=== PATIENT | female | born 1935 | race Native Hawaiian/Other Pacific Islander ===

== ENCOUNTER 2017-07-12 08:04 | Outpatient (CLI) | payer OTHER, BC | END 2017-07-12 21:19 | disposition home or self-care (01) | LOC: MAMMO 08:04 | DX: Z12.31 Encounter for screening mammogram for malignant neoplasm of breast (principal); I77.89 Other specified disorders of arteries and arterioles ==

== ENCOUNTER 2017-09-24 11:29 | Outpatient (CLI) | payer OTHER, BC ==
[2017-09-24 12:50] LABS: PLATELET COUNT 240 K/uL (152-353)
[2017-09-24 13:14] LABS: POTASSIUM 4.3 mmol/L (3.6-5.2)
== END 2017-09-24 18:19 | disposition home or self-care (01) ==
LOC: LABW 11:29
PROVIDERS: Internal Medicine
DX: I10 Essential (primary) hypertension (principal); R53.83 Other fatigue; Z79.899 Other long term (current) drug therapy; Z51.81 Encounter for therapeutic drug level monitoring; E53.8 Deficiency of other specified B group vitamins; E55.9 Vitamin D deficiency, unspecified; E78.00 Pure hypercholesterolemia, unspecified
CPT/HCPCS: 36415; 80053; 80061; 81000; 82043; 82306; 82570; 82607; 82728; 82746; 83540; 83550; 83735; 84100; 84155; 84439; 84443; 84550; 85027; 85651; 86430

== ENCOUNTER 2018-05-29 10:18 | Outpatient (CLI) | payer OTHER, BC ==
[2018-05-29 11:15] LABS: PLATELET COUNT 195 K/uL (152-353)
[2018-05-29 11:38] LABS: POTASSIUM 4.2 mmol/L (3.6-5.2)
== END 2018-05-29 19:47 | disposition home or self-care (01) ==
LOC: LABW 10:18
PROVIDERS: Internal Medicine
DX: I10 Essential (primary) hypertension (principal); Z79.899 Other long term (current) drug therapy; E55.9 Vitamin D deficiency, unspecified; E53.8 Deficiency of other specified B group vitamins
CPT/HCPCS: 36415; 80053; 81000; 82043; 82306; 82570; 82607; 82746; 83735; 83970; 84100; 84155; 84439; 84443; 84550; 85027

== ENCOUNTER 2019-01-27 12:45 | Outpatient (CLI) | payer OTHER, BC ==
[2019-01-27 13:20] LABS: PLATELET COUNT 211 K/uL (152-353)
[2019-01-27 13:48] LABS: POTASSIUM 4.1 mmol/L (3.6-5.2)
== END 2019-01-27 19:45 | disposition home or self-care (01) ==
LOC: LABW 12:45
PROVIDERS: Internal Medicine
DX: E03.8 Other specified hypothyroidism (principal); E53.8 Deficiency of other specified B group vitamins; E55.9 Vitamin D deficiency, unspecified; I12.9 Hypertensive chronic kidney disease with stage 1 through stage 4 chronic kidney disease, or unspecified chronic kidney disease; N18.9 Chronic kidney disease, unspecified
CPT/HCPCS: 36415; 80053; 81000; 82306; 82330; 82607; 82746; 83735; 83970; 84100; 84439; 84443; 85027; 85651

== ENCOUNTER 2019-01-29 08:26 | Outpatient (CLI) | payer OTHER, BC | END 2019-01-29 19:44 | disposition home or self-care (01) | LOC: CT 08:26 | DX: R07.1 Chest pain on breathing (principal); R41.3 Other amnesia | CPT/HCPCS: Q9963 ==

== ENCOUNTER 2019-02-02 07:43 | Outpatient (CLI) | payer OTHER, BC | END 2019-02-02 20:34 | disposition home or self-care (01) | LOC: CT 07:43 | DX: R07.1 Chest pain on breathing (principal); R41.3 Other amnesia ==

== ENCOUNTER 2019-02-05 08:28 | Outpatient (CLI) | payer OTHER, BC | END 2019-02-05 23:20 | disposition home or self-care (01) | LOC: CT 08:28 | DX: R07.1 Chest pain on breathing (principal); R41.3 Other amnesia | CPT/HCPCS: Q9963 ==

== ENCOUNTER 2019-03-31 08:03 | Outpatient (CLI) | payer OTHER, BC ==
[2019-03-31 08:27] LABS: PLATELET COUNT 192 K/uL (152-353)
[2019-03-31 08:57] LABS: POTASSIUM 4.4 mmol/L (3.6-5.2)
== END 2019-03-31 19:21 | disposition home or self-care (01) ==
LOC: LABW 08:03
PROVIDERS: Internal Medicine
DX: N18.3 Chronic kidney disease, stage 3 (moderate) (principal); D64.9 Anemia, unspecified
CPT/HCPCS: 36415; 80053; 81000; 82043; 82570; 82728; 83540; 83550; 83735; 84155; 85027

== ENCOUNTER 2019-07-15 09:24 | Outpatient (CLI) | payer OTHER, BC | END 2019-07-15 21:15 | disposition home or self-care (01) | LOC: MRI 09:24 | DX: M25.552 Pain in left hip (principal) ==

== ENCOUNTER 2019-10-02 08:34 | Outpatient (CLI) | payer OTHER, BC ==
[2019-10-02 09:32] LABS: POTASSIUM 4.6 mmol/L (3.6-5.2)
[2019-10-02 10:02] LABS: PLATELET COUNT 205 K/uL (152-353)
== END 2019-10-02 19:18 | disposition home or self-care (01) ==
LOC: LABW 08:34
PROVIDERS: Internal Medicine
DX: N18.3 Chronic kidney disease, stage 3 (moderate) (principal); D64.9 Anemia, unspecified
CPT/HCPCS: 36415; 80053; 81000; 82043; 82570; 82607; 82728; 82746; 83540; 83550; 83735; 84155; 85027

== ENCOUNTER 2019-12-25 11:29 | Outpatient (CLI) | payer OTHER, BC ==
[2019-12-25 11:50] LABS: PLATELET COUNT 198 K/uL (152-353)
[2019-12-25 11:57] LABS: POTASSIUM 4.2 mmol/L (3.6-5.2)
== END 2019-12-25 20:45 | disposition home or self-care (01) ==
LOC: LAB 11:29
PROVIDERS: Internal Medicine
DX: N18.3 Chronic kidney disease, stage 3 (moderate) (principal)
CPT/HCPCS: 36415; 80053; 81000; 82043; 82570; 83735; 84155; 85027

== ENCOUNTER 2019-12-30 17:07 | Emergency (ER) | payer OTHER, BC ==
[~2019-12-30] VITALS: Ht 160 cm; Wt 61.7 kg
[2019-12-30 17:07] VITALS: TEMP 100
[2019-12-30 19:45] VITALS: BP 149/69
== END 2019-12-30 20:07 | disposition short-term general hospital (02) ==
LOC: ED 17:08
DX: S22.43XA Multiple fractures of ribs, bilateral, initial encounter for closed fracture (principal); S30.0XXA Contusion of lower back and pelvis, initial encounter; S30.1XXA Contusion of abdominal wall, initial encounter; S50.811A Abrasion of right forearm, initial encounter; I67.2 Cerebral atherosclerosis; V49.40XA Driver injured in collision with unspecified motor vehicles in traffic accident, initial encounter; Y92.89 Other specified places as the place of occurrence of the external cause
CPT/HCPCS: 93005; 96374; 99284; J1885

== ENCOUNTER 2020-01-08 09:29 | Outpatient (CLI) | payer OTHER, BC | END 2020-01-08 23:12 | disposition home or self-care (01) | LOC: US 09:29 | DX: M79.661 Pain in right lower leg (principal) ==

== ENCOUNTER 2020-01-28 15:20 | Emergency (ER) | payer OTHER, BC ==
[~2020-01-28] VITALS: Ht 160 cm; Wt 61.2 kg
[2020-01-28 15:27] VITALS: BP 171/54; TEMP 98
== END 2020-01-28 16:22 | disposition home or self-care (01) ==
LOC: ED 15:20
DX: M79.631 Pain in right forearm (principal); Z18.81 Retained glass fragments; Z79.2 Long term (current) use of antibiotics
CPT/HCPCS: 99282

== ENCOUNTER 2020-02-17 10:57 | Outpatient (CLI) | payer OTHER, BC ==
[2020-02-17 11:19] LABS: PLATELET COUNT 221 K/uL (152-353)
[2020-02-17 11:39] LABS: POTASSIUM 4.3 mmol/L (3.6-5.2)
== END 2020-02-17 22:24 | disposition home or self-care (01) ==
LOC: LABW 10:57
PROVIDERS: Nurse Practitioner
DX: N18.30 Chronic kidney disease, stage 3 unspecified (principal)
CPT/HCPCS: 36415; 80053; 81000; 82043; 82570; 83735; 84155; 85027

== ENCOUNTER 2020-05-24 10:47 | Outpatient (CLI) | payer OTHER, BC ==
[2020-05-24 11:55] LABS: PLATELET COUNT 206 K/uL (152-353)
[2020-05-24 13:08] LABS: POTASSIUM 4.3 mmol/L (3.6-5.2)
== END 2020-05-24 23:20 | disposition home or self-care (01) ==
LOC: RAD 10:47
PROVIDERS: ATTEND Physician Assistant
DX: M79.671 Pain in right foot (principal); M54.5 Low back pain; N18.32 Chronic kidney disease, stage 3b
CPT/HCPCS: 36415; 80053; 81000; 82043; 82570; 83735; 84155; 85027

== ENCOUNTER 2020-06-01 12:05 | Outpatient (CLI) | payer OTHER, BC | END 2020-06-01 21:51 | disposition home or self-care (01) | LOC: RAD 12:05 | PROVIDERS: ATTEND Physician Assistant | DX: M79.641 Pain in right hand (principal) ==

== ENCOUNTER 2020-06-16 12:24 | Outpatient (CLI) | payer OTHER, BC | END 2020-06-16 19:58 | disposition home or self-care (01) | LOC: INF 12:24 | PROVIDERS: ATTEND Internal Medicine Endocrinology, Diabetes & Metabolism | DX: Z23 Encounter for immunization (principal) | CPT/HCPCS: 96372 ==

== ENCOUNTER 2020-07-12 08:22 | Outpatient (CLI) | payer OTHER, BC | END 2020-07-12 19:13 | disposition home or self-care (01) | LOC: INF 08:22 | PROVIDERS: ATTEND Internal Medicine | DX: Z23 Encounter for immunization (principal) | CPT/HCPCS: 96372 ==

== ENCOUNTER 2020-09-13 10:42 | Outpatient (CLI) | payer OTHER, BC ==
[2020-09-13 11:11] LABS: PLATELET COUNT 194 K/uL (152-353)
[2020-09-13 11:22] LABS: POTASSIUM 4.3 mmol/L (3.6-5.2)
== END 2020-09-13 21:59 | disposition home or self-care (01) ==
LOC: LABW 10:42
PROVIDERS: ATTEND Internal Medicine
DX: N18.32 Chronic kidney disease, stage 3b (principal)
CPT/HCPCS: 36415; 80053; 81000; 82043; 82570; 83735; 84155; 85027

== ENCOUNTER 2020-09-27 09:17 | Outpatient (CLI) | payer OTHER, BC | END 2020-09-27 22:04 | disposition home or self-care (01) | LOC: CT 09:17 | PROVIDERS: ATTEND Internal Medicine | DX: R59.9 Enlarged lymph nodes, unspecified (principal) | CPT/HCPCS: Q9963 ==

== ENCOUNTER 2020-12-30 09:25 | Outpatient (CLI) | payer OTHER, BC | END 2020-12-30 21:57 | disposition home or self-care (01) | LOC: US 09:25 | PROVIDERS: ATTEND Internal Medicine Cardiovascular Disease | DX: R09.89 Other specified symptoms and signs involving the circulatory and respiratory systems (principal); I10 Essential (primary) hypertension ==

== ENCOUNTER 2021-02-15 09:15 | Outpatient (CLI) | payer OTHER, BC ==
[2021-02-15 09:52] LABS: PLATELET COUNT 190 K/uL (152-353)
[2021-02-15 10:22] LABS: POTASSIUM 4.2 mmol/L (3.6-5.2)
== END 2021-02-15 20:05 | disposition home or self-care (01) ==
LOC: LABW 09:15
PROVIDERS: ATTEND Nurse Practitioner
DX: N18.32 Chronic kidney disease, stage 3b (principal); N32.81 Overactive bladder
CPT/HCPCS: 36415; 80053; 81000; 82043; 82570; 83735; 84155; 85027

== ENCOUNTER 2021-07-31 10:21 | Outpatient (CLI) | payer OTHER, BC ==
[2021-07-31 10:56] LABS: PLATELET COUNT 195 K/uL (152-353)
[2021-07-31 11:23] LABS: POTASSIUM 4.7 mmol/L (3.6-5.2)
== END 2021-07-31 18:56 | disposition home or self-care (01) ==
LOC: LABW 10:21
PROVIDERS: ATTEND Internal Medicine
DX: N18.32 Chronic kidney disease, stage 3b (principal); E03.8 Other specified hypothyroidism; N32.81 Overactive bladder; Z79.899 Other long term (current) drug therapy
CPT/HCPCS: 36415; 80053; 81000; 82043; 82570; 83036; 83735; 84155; 84439; 84443; 85027

== ENCOUNTER 2022-02-05 11:49 | Outpatient (CLI) | payer OTHER, BC ==
[2022-02-05 12:53] LABS: PLATELET COUNT 229 K/uL (152-353)
[2022-02-05 13:17] LABS: POTASSIUM 4.5 mmol/L (3.6-5.2)
== END 2022-02-05 20:46 | disposition home or self-care (01) ==
LOC: LABW 11:49
PROVIDERS: ATTEND Internal Medicine
DX: N18.32 Chronic kidney disease, stage 3b (principal); E03.8 Other specified hypothyroidism; E78.2 Mixed hyperlipidemia; D64.9 Anemia, unspecified; Z79.899 Other long term (current) drug therapy
CPT/HCPCS: 36415; 80053; 80061; 81002; 82043; 82306; 82330; 82550; 82570; 82728; 83036; 83540; 83550; 83735; 83970; 84100; 84156; 84439; 84443; 85027

== ENCOUNTER 2022-11-05 10:30 | Outpatient (CLI) | payer OTHER, BC ==
[2022-11-05 10:55] LABS: PLATELET COUNT 272 K/uL (152-353)
[2022-11-05 11:51] LABS: POTASSIUM 4.8 mmol/L (3.6-5.2)
== END 2022-11-05 19:27 | disposition home or self-care (01) ==
LOC: LABW 10:30
PROVIDERS: ATTEND Internal Medicine
DX: N18.32 Chronic kidney disease, stage 3b (principal); E03.8 Other specified hypothyroidism; E78.2 Mixed hyperlipidemia; D64.89 Other specified anemias; Z79.899 Other long term (current) drug therapy
CPT/HCPCS: 36415; 80053; 80061; 81002; 82043; 82306; 82330; 82550; 82570; 82728; 83036; 83540; 83550; 83735; 83970; 84100; 84156; 84439; 84443; 85027

== ENCOUNTER 2023-01-21 10:53 | Outpatient (CLI) | payer OTHER, BC | END 2023-01-21 21:24 | disposition home or self-care (01) | LOC: MRI 10:53 | PROVIDERS: ATTEND Internal Medicine | DX: R41.3 Other amnesia (principal) | CPT/HCPCS: 36415; 82565; 84520; A9576 ==

== ENCOUNTER 2023-02-22 11:09 | Outpatient (CLI) | payer OTHER, BC | END 2023-02-22 19:24 | disposition home or self-care (01) | LOC: RAD 11:09 | PROVIDERS: ATTEND Nurse Practitioner Family | DX: M25.542 Pain in joints of left hand (principal); M25.541 Pain in joints of right hand ==